=== PATIENT | male | born 1985 | race Caucasian/White ===

== ENCOUNTER 2017-09-25 08:12 | Inpatient (IN) | payer OTHER ==
[2017-09-25] VITALS (10 sets, daily range): BP systolic 105–134; BP diastolic 64–88
[~2017-09-25] VITALS: Ht 175.3 cm; Wt 93.9 kg
[~2017-09-25 08:12] MED LIST: Lidocaine 1% MPF 10mg/ml 5ml ONE; Midazolam 2mg/2ml Inj ONE; Propofol 200mg/20ml IV ONE; Sodium Chloride 10ml vial INJ ONE; ceFAZolin sod 2 GM in D5W 110 ML IVPB ONE; fentaNYL 100 mcg/2 mL IV ONE
[2017-09-25] MEDS ORDERED: Ketamine 500mg Inj ONE (13:00)
[2017-09-25] MEDS ORDERED: LR 1000ml 1,000 ML IVLG SCH (13:16)
--- NOTE | 2017-09-25 13:26 | Anethesia Preoperative Eval ---
Anesthesia Pre-op PMH/ROS General Date of Evaluation: Sep 25, 2017 Time of Evaluation: 13:46 Anesthesiologist: Shruti ASA Score: ASA 1 Mallampati Score Class I : Soft palate, uvula, fauces, pillars visible Class II: Soft palate, uvula, fauces visible Class III: Soft palate, base of uvula visible Class IV: Only hard plate visible Mallampati Classification: Class I Surgeon: Rusty Diagnosis: Back Pain Surgical Procedure: Left L4-5, L5-S1 Hemilaminectomy, Microdiscectomy Anesthesia History: none Family History: no anesthesia problems Allergies: Coded Allergies: No Known Allergies (Unverified , 09/25/17) Medications: see eMAR Past Medical History Other: obesity - BMI 30 Anesthesia Pre-op Phys. Exam Physician Exam Last Vital Signs Date Time Temp Pulse Resp B/P (MAP) Pulse Ox O2 Delivery O2 Flow Rate FiO2 09/25/17 09:40 97.8 57 18 127/79 99 Room Air 97.8 Constitutional: NAD Neurologic: CN 2-12 intact Cardiovascular: RRR Respiratory: CTA Gastrointestinal: S/NT/ND Airway Exam Mallampati Score: Class I MO: full ROM: full Teeth: intact Anesthesia Pre-op A/P Risk Assessment & Plan Assessment: ASA 1 Plan: GA, BIS, GlideScope Go Status Change Before Surgery: No Pre-Antibiotics Dru Grams Ancef IV Given Within 1 Hr of Incision: Yes Time Given: 14:07 Sundar Bahena MD Sep 25, 2017 13:26
[2017-09-25] MEDS ORDERED: Dexamethasone 4mg/ml vial ONE (13:27)
[2017-09-25] MEDS ORDERED: Ketorolac 30mg Inj ONE (13:28)
[2017-09-25] MEDS ORDERED: Labetalol 5mg/ml 20ml vial IV PRN (13:30)
[2017-09-25] MEDS ORDERED: Hydromorphone 0.5mg/0.5ml inj IVP PRN (13:30)
[2017-09-25] MEDS ORDERED: fentaNYL 100 mcg/2 mL IV PRN (13:30)
[2017-09-25] MEDS ORDERED: Ketorolac 30mg Inj IV PRN ×2 (13:30)
[2017-09-25] MEDS ORDERED: Metoclopramide 10mg/2ml Inj IVP PRN (13:30)
[2017-09-25] MEDS ORDERED: LORazepam Inj 2mg/ml 1ml IV PRN (13:30)
[2017-09-25] MEDS ORDERED: Atropine Inj 1mg/10ml Syr IV PRN (13:30)
[2017-09-25] MEDS ORDERED: Acetaminophen (Non formulary) 100 ML IV ONE (13:30)
[2017-09-25] MEDS ORDERED: Midazolam 2mg/2ml Inj IVP PRN (13:30)
[2017-09-25] MEDS ORDERED: DiphenhydrAMINE 50mg/ml Inj IVP PRN (13:30)
[2017-09-25] MEDS ORDERED: oxyCODONE HCL/Acetaminophen 5/325mg ORAL PRN (13:30)
[2017-09-25] MEDS ORDERED: Norco 5mg/325mg tab ORAL PRN ×2 (13:30→16:45)
[2017-09-25] MEDS ORDERED: HYDROcodone/Acetamin 7.5/325 tab ORAL PRN ×3 (13:30→16:45)
[2017-09-25] MEDS ORDERED: Lidocaine 1% Plain 30 ml INJ ONE (13:37)
[2017-09-25] MEDS ORDERED: EPINEPHrine 1mg/1ml Amp ONE (13:40)
[2017-09-25] MEDS ORDERED: Thrombin 5000 units TOPIC ONE (13:41)
[2017-09-25] MEDS ORDERED: Lidocaine 1% 10mg/ml/EPI 0.01mg/ml 50ml INJ ONE (13:41)
[2017-09-25] MEDS ORDERED: Thrombin 5000 units spray kit TOPIC ONE (13:41)
[2017-09-25] MEDS ORDERED: Gelfoam Absorbable 1gm powder pkt TOPIC ONE (13:42)
[2017-09-25] MEDS ORDERED: Bupivacaine 0.5% Inj 30 ml vial INJ ONE (13:42)
[2017-09-25] MEDS ORDERED: Bacitracin 50000 Units Vial ONE (13:42)
[2017-09-25] MEDS ORDERED: Labetalol 5mg/ml 20ml vial IV ONE (13:45)
[2017-09-25] MEDS ORDERED: Propofol 1,000mg/ 100ml btl IV ONE ×2 (13:45)
[2017-09-25] MEDS ORDERED: NS Irrig 1000ml ONE (13:45)
[2017-09-25] MEDS ORDERED: Zemuron 50mg/5ml Inj IV ONE (13:45)
[2017-09-25] MEDS ORDERED: Sterile Water Irrig 1000ml IRRIG ONE (13:45)
[2017-09-25] MEDS ORDERED: LR 1000ml ONE (13:45)
--- NOTE | 2017-09-25 14:18 | Pre-Procedure Note/Attestation ---
Pre-Procedure Note/Attestation Complete Prior to Procedure Procedure Narrative: l4-s1 laminectomy and discectomy L side Indications for Procedure Pre-Operative Diagnosis: Lumbar hnp with radiculopathy Attestation I attest that I discussed the nature of the procedure; its benefits; risks and complications; and alternatives (and the risks and benefits of such alternatives ), prior to the procedure, with the patient (or the patient's legal associate sales representative). I attest that, if there was a reasonable possibility of needing a blood transfusion, the patient (or the patient's legal associate sales representative) was given the [facility] standardized written summary, pursuant to the [place] Blood Safety Act ([place] Health and Safety Code # 1645, as amended). I attest that I re-evaluated the patient just prior to the surgery and that there has been no change in the patient's H&P, except as documented below: JOSE DAVID LUIS Sep 25, 2017 14:18
--- NOTE | 2017-09-25 14:45 | Immediate Post-Op Evaluation ---
Immediate Post-Op Evalulation Immediate Post-Op Evalulation Procedure: Left L4-5, L5-S1 Hemilaminectomy, Microdiscectomy Date of Evaluation: Sep 25, 2017 Time of Evaluation: 16:50 IV Fluids: 1000 LR Blood Products: 0 Estimated Blood Loss: 50 Urinary Output: 600 Blood Pressure Systolic: 133 Blood Pressure Diastolic: 88 Pulse Rate: 86 Respiratory Rate: 16 O2 Sat by Pulse Oximetry: 100 Temperature (Fahrenheit): 97.2 Pain Score (1-10): 2 Nausea: No Vomiting: No Complications 0 Patient Status: awake, reacts, patent, extubated, none Hydration Status: adequate Dru Grams Ancef IV Given Within 1 Hr of Incision: Yes Time Given: 14:07 Sundar Bahena MD Sep 25, 2017 14:45
[2017-09-25] MEDS ORDERED: Glycopyrrolate 0.2mg/ml 1ml Vial ONE ×2 (16:07→16:13)
[2017-09-25] MEDS ORDERED: Neostigmine 1mg/ml 10ml Inj ONE (16:07)
--- NOTE | 2017-09-25 16:20 | Diagnostic Imaging Report ---
Indication: Reason For Exam: PAIN Technique: Intraoperative images, back pain. Total fluoroscopy time 3.6 seconds. Total dose area product 1.55 mGycm2 Comparison: none Findings: Intraoperative images document surgical needles projected posterior to what are presumably L4 and L5 vertebral bodies. Subsequent image demonstrates a surgical tool projected posterior to the top of the sacrum. Impression: Intraoperative imaging, as described
--- NOTE | 2017-09-25 16:36 | Brief Operative Note ---
Immediate Post Operative Note Operative Note Pre-op Diagnosis: Lumbar hnp with radiculopathy Procedure: L45S1 L laminectomy Post-op Diagnosis: same as pre-op Findings: consistent w/pre-op dx studies Surgeon: kasey Exotic Dancer: sagar hernandez pac Anesthesiologist: lara arias Anesthesia: general Specimen: yes - disc gross Complications: none Condition: stable Fluids: 1000 Estimated Blood Loss: minimal Drains: none Implant(s) used?: No JOSE DAVID LUIS Sep 25, 2017 16:36
[2017-09-25] MEDS ORDERED: traMADol 50mg tab ORAL PRN (16:45)
[2017-09-25] MEDS ORDERED: Milk of Magnesia 30ml Ud ORAL PRN (16:45)
[2017-09-25] MEDS: D5 1/2NS 1,000 ML IV SCH (18:12)
[2017-09-25] MEDS: Docusate 100mg cap ORAL SCH (18:20)
[2017-09-25] MEDS ORDERED: Chloraseptic Spray 20mL Bottle ORAL PRN (20:15)
[2017-09-25] MEDS ORDERED: Cyclobenzaprine 10mg Tab ORAL PRN (20:15)
[2017-09-25] MEDS ORDERED: oxyCODONE 5mg IR tab ORAL SCH (20:30)
[2017-09-25] MEDS ORDERED: Tamsulosin 0.4mg cap ORAL SCH (21:00)
--- NOTE | 2017-09-25 22:14 | Operative Note - Dictated ---
DATE OF OPERATION: 09/25/2017 SURGEON: Rafael Ojeda M.D. SENIOR EXAMINER: Esequiel Sanchez PA-C. ANESTHESIOLOGIST: Sundar Bahena M.D. ANESTHESIA TYPE: General endotracheal anesthesia. PREOPERATIVE DIAGNOSIS: Lumbar disk herniation L4-L5 and L5-S1 with radiculopathy, left lower extremity. POSTOPERATIVE DIAGNOSIS: Lumbar disk herniation L4-L5 and L5-S1 with radiculopathy, left lower extremity. PROCEDURE: 1. Hemilaminectomy and medial facetectomy, left side L4-L5 and L5-S1. 2. Microscopic diskectomy, L4-L5 and L5-S1 3. Neurodiagnostic monitoring. 4. Use of fluoroscope for localization purposes. 5. Use of operating microscope. ESTIMATED BLOOD LOSS: Minimal. COMPLICATIONS: None. FLUIDS: 1000 mL. INDICATIONS: The patient is a very pleasant 32-year-old sustained an injury to his back resulting in back and left lower extremity radiculopathic pain. MRI confirmed a large disk herniation at L5-S1, smaller disk herniation L4-L5. Pros, cons, risks benefits were discussed with the patient as he had failed conservative care. The patient elected to proceed with surgery. Pros, cons, risks and benefits were discussed to include, but not be limited to, those of bleeding, infection, damage to nerves, vessels, tendons, anesthetic risk, allergic reaction, aspiration and possibly . The patient understood wished to proceed. OPERATIVE PROCEDURE IN DETAIL: The patient was taken to the operative suite. After general endotracheal anesthesia was obtained, Tripathi catheter was placed. He was turned prone onto a radiolucent table. All bony prominences were well padded. The back was prepped and draped in usual sterile fashion. [place] were placed at L4-L5 and L5-S1 and levels were confirmed radiographically with fluoroscope. At this point, the skin was infiltrated with Marcaine with epinephrine. The incision was carried down and left-sided subperiosteal dissection was carried out from L4 through S1. Self-retaining retractors were put into place. A probe was placed under the lamina of L5 and radiographically confirmed. Operating microscope was brought in place. High-speed drill was used to thin out the lamina of L5 and the leading edge of lamina of S1. Medial facetectomy was performed. Ligamentum flavum and inner table of the lamina was removed with a 3 and 4 Kerrison punch as well as a curved curette. At this point, once the nerve root was identified, it was gently retracted medially. Extensive neovascularization was identified and this was cauterized with the use of Bovie. The nerve root was gently retracted medially. A large disk extrusion was identified. The outer portion of the posterior longitudinal ligament was incised which allowed us to have full visualization of the extruded disk fragment which was removed in a piecemeal fashion. The rent within the anulus was identified and with multiple passes with a straight and angled pituitary and Tejeda pituitary we were able to mechanically debulk the disk of all loose disk fragments. Copious intradiscal irrigation was performed. Once satisfied with the decompression, hemostasis was achieved. Neural foraminotomy was achieved with use of a curved curette and Kerrison punch. At this point, this area was packed off with FloSeal and Gelfoam and in an identical fashion L4-L5 hemilaminectomy was then performed with a diskectomy left side L4-L5. Once satisfied with the decompression at both levels, Valsalva confirmed no CSF leak. Copious irrigation was performed. FloSeal was applied. Bone wax was applied to the bone edges. Fascia was repaired using #1 Vicryl, subcutaneous closure using 2-0 Vicryl. Dermabond and sterile dressing was applied. The patient was then turned onto his back, awakened and extubated and transferred to recovery room in stable condition. Rafael Larisa Ojeda DR: Kaity JOB#: [id number] CC:
[2017-09-25] MEDS: ceFAZolin sod 1 GM in D5W 55 ML IV SCH (22:42)
[2017-09-25] MEDS: Hydromorphone 0.5mg/0.5ml inj SUBQ PRN (22:43)
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
[2017-09-26] MEDS: Hydromorphone 0.5mg/0.5ml inj SUBQ PRN ×4 (02:39→18:34)
[2017-09-26] MEDS: D5 1/2NS 1,000 ML IV SCH ×2 (02:52→12:56)
[2017-09-26 04:00] VITALS: BP 101/59
[2017-09-26] MEDS: ceFAZolin sod 1 GM in D5W 55 ML IV SCH ×2 (06:01→14:35)
[2017-09-26] MEDS: oxyCODONE 5mg IR tab ORAL PRN ×3 (06:02→17:06)
[2017-09-26 08:00] VITALS: BP 106/57
[2017-09-26] MEDS: Docusate 100mg cap ORAL SCH ×2 (08:15→18:33)
--- NOTE | 2017-09-26 10:15 | 48 Hour Post Anesthesia Eval ---
Post Anesthesia Evaluation Procedure: Left L4-5, L5-S1 Hemilaminectomy, Microdiscectomy Date of Evaluation: Sep 26, 2017 Time of Evaluation: 07:00 Blood Pressure Systolic: 101 0: 59 Pulse Rate: 63 Respiratory Rate: 17 Temperature (Fahrenheit): 97.8 O2 Sat by Pulse Oximetry: 99 Airway: patent Nausea: No Vomiting: No Pain Intensity: 1 Hydration Status: adequate Cardiopulmonary Status: a baseeline Mental Status/LOC: patient returned to baseline Post-Anesthesia Complications: 0 Follow-up care needed: N/A - further care as per primary team STEPHANIE SCHAFFER M.D. Sep 26, 2017 10:15
[2017-09-26 11:52] VITALS: BP 116/56
[2017-09-26 16:00] VITALS: BP 128/85
[2017-09-26] MEDS ORDERED: CYCLOBENZAPRINE10 MG ORAL (16:30)
[2017-09-26] MEDS ORDERED: PERCOCET 10-321 EAC1 PO (16:31)
--- NOTE | 2017-09-26 18:45 | Progress Note ---
DATE: 09/26/2017 ACUTE PAIN MANAGEMENT PHYSICIAN PROGRESS NOTE MEDICATIONS: Medication administration record reviewed. Medications include IV fluids, Ancef, Colace, Protonix, Flomax, Tylenol, milk of magnesia, Chloraseptic, Benadryl, Mylanta, oxycodone, Flexeril, Zofran, and Dilaudid. OBJECTIVE: VITAL SIGNS: Afebrile, pulse 87, respirations 20, blood pressure 116/56, and oxygen saturation 99% on room air. LABORATORY STUDIES: No interval laboratory studies. I spent over 60 minutes in consultation today. I saw the patient at bedside with his girlfriend and the nurse RN, Dianna. The patient has been doing quite well after his lumbar spine surgery yesterday. He has been ambulating. He is voiding urine without difficulty. I will discontinue the Flomax in this young gentleman now that the urine is flowing well. The patient denies any shortness of breath or chest pain. The patient has been alternating p.r.n. doses of oxycodone and subcutaneous Dilaudid with good analgesic effect. I did leave a prescription for Percocet and Flexeril for outpatient usage. The girlfriend is providing excellent social support, and assisting with activities of daily living. The patient has been ambulating well with physical therapy. The lumbar spine wound dressing is clean and dry. Overall, the patient is progressing extremely well. I agree with Dr. Ojeda for discharge trial home today and the patient will follow up with Dr. Ojeda in surgical clinic in the next 1 to 2 weeks for followup. Marcus Son M.D. DR: KELSY JOB#: [id number] CC:
--- NOTE | 2017-09-26 18:59 | Orthopedic Spine Progress Note ---
Ortho Spine - Progress Note Subjective Symptoms: c/o post-op back pain, improved - as compared to pre-op Objective Vital Signs: Last 24 Hour Vital Signs Date Time Temp Pulse Resp B/P (MAP) Pulse Ox O2 Delivery O2 Flow Rate FiO2 09/26/17 16:00 97.8 71 20 128/85 95 Room Air 97.8 09/26/17 11:52 97.7 67 20 116/56 95 Room Air 97.7 09/26/17 10:15 208.0 63 17 99 09/26/17 08:00 97.5 66 20 106/57 96 Room Air 97.5 09/26/17 04:00 97.8 63 17 101/59 99 Room Air 97.8 09/25/17 21:00 98.3 76 18 105/64 93 Room Air 98.3 I&O: Intake and Output 09/25/17 09/26/17 19:00 07:00 Intake Total 1160 ml 1580 ml Output Total 630 ml 400 ml Balance 530 ml 1180 ml Intake Oral 60 ml 480 ml IV Total 1100 ml 1100 ml Output Urine Total 600 ml 400 ml Estimated Blood Loss 30 ml # Voids 1 1 Wound: clean, intact Drains: none Neuro Status: normal - mild tingling in L5 distribution Assessment Procedure Performed: L45S1 L laminectomy Plan Plan: discharge to home JOSE DAVID LUIS Sep 26, 2017 18:59
[2017-09-26] MEDS ORDERED: Milk of Magnesia 30ml Ud ORAL ONE (19:00)
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
== END 2017-09-26 19:13 | disposition home or self-care (01) | DRG 520 ==
LOC: SDSOVERFLO 08:12 → 3E 17:07
PROC: 0SB20ZZ Excision of Lumbar Vertebral Disc, Open Approach (ICD-10-PCS; principal; 2017-09-25 13:00)
PROC: 0SB40ZZ Excision of Lumbosacral Disc, Open Approach (ICD-10-PCS; principal; 2017-09-25 13:00)
DX: M51.17 Intervertebral disc disorders with radiculopathy, lumbosacral region (principal); M51.16 Intervertebral disc disorders with radiculopathy, lumbar region; E66.9 Obesity, unspecified; G89.18 Other acute postprocedural pain; Z68.30 Body mass index [BMI] 30.0-30.9, adult; Z87.891 Personal history of nicotine dependence
CPT/HCPCS: 36415; 72020; 76000; 86850; 86900; 86901; 87081; 94003; 94150; J2250; J2405; J2710